=== PATIENT | male | born 1960 | race Caucasian/White ===

== ENCOUNTER 2019-09-07 15:54 | Emergency (ER) | payer OTHER ==
[~2019-09-07] VITALS: Ht 175.3 cm; Wt 71.1 kg
[2019-09-07 15:58] VITALS: BP 142/82
--- NOTE | 2019-09-07 16:21 | NUR ---
C COLLAR APPLIED PATIENT THEN TRANSPORTED TO CT SCAN NEURO EXAM UNREMARKABLE PATIENT REPORTS HX OF CERVICAL FUSION-
[2019-09-07] MEDS ORDERED: DIPH,PERTUSS(ACELL),TET VAC/PF 0.5 ML IM-VACC ONE ×3 (16:30→16:51)
[2019-09-07] MEDS ORDERED: NEOSPORIN OINT. PKT 1 PACKET ONE ×2 (16:30→16:42)
--- NOTE | 2019-09-07 16:50 | NUR ---
C-COLLAR REMOVED BY RADIOLOGY PATIENT BACK TO RADIOLOGY FOR RLE FILMS
[2019-09-07] MEDS ORDERED: KETOROLAC 30 MG/1 ML ONE (16:51)
== END 2019-09-07 18:41 | disposition home or self-care (01) ==
LOC: ED 18:05
DX: S00.83XA Contusion of other part of head, initial encounter (principal); S00.432A Contusion of left ear, initial encounter; S00.81XA Abrasion of other part of head, initial encounter; S10.91XA Abrasion of unspecified part of neck, initial encounter; W18.30XA Fall on same level, unspecified, initial encounter; Y93.89 Activity, other specified; Y92.830 Public park as the place of occurrence of the external cause; Y99.9 Unspecified external cause status
CPT/HCPCS: 70450; 70486; 72125; 90471; 90715

== ENCOUNTER 2020-05-30 15:09 | Emergency (ER) | payer OTHER ==
[~2020-05-30] VITALS: Ht 175.3 cm; Wt 69.4 kg
[2020-05-30] MEDS ORDERED: FENTANYL PF 100 MCG/2ML ONE (16:46)
[2020-05-30] MEDS ORDERED: LIDOCAINE-MPF 1%, 5ML ONE ×2 (17:07→17:18)
[2020-05-30] MEDS ORDERED: MIDAZOLAM 1 MG/ML, 5ML ONE (17:58)
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
--- NOTE | 2020-05-30 18:35 | NUR ---
GAVE REPORT TO ASIF MARSHALL AT [facility]
--- NOTE | 2020-05-30 19:00 | NUR ---
REPORT OF PT FROM JOANNA HENRIQUEZ AND ASSUMING CARE OF PT AT THIS TIME.
--- NOTE | 2020-05-30 19:11 | NUR ---
REPORT OF PT TO TRANSPORT STAFF AT THIS TIME. PT RESTING COMFORTABLY IN [facility] WITH STABLE VS. PT DENIES ANY OTHER NEEDS PERTAINING TO TRANSPORT TO [facility].
[2020-05-30 19:12] VITALS: BP 130/85
== END 2020-05-31 03:38 | disposition home or self-care (01) ==
LOC: ED 15:54
DX: S27.2XXA Traumatic hemopneumothorax, initial encounter (principal); S22.42XA Multiple fractures of ribs, left side, initial encounter for closed fracture; R06.03 Acute respiratory distress; W18.30XA Fall on same level, unspecified, initial encounter; Y93.89 Activity, other specified; Y92.410 Unspecified street and highway as the place of occurrence of the external cause; Y99.8 Other external cause status
CPT/HCPCS: 32551; 71045; 93005; 99152; 99291; J2250